=== PATIENT | female | born 1955 | race Caucasian/White ===

== ENCOUNTER 2021-03-31 10:01 | Outpatient (REF) | payer MEDICARE, MEDICAID, SELFPAY ==
--- NOTE | ~2021-03-31 | CT_ITS ---
EXAMINATION: CT ANGIOGRAM BRAIN, HEAD CLINICAL INFORMATION: 66-year-old undergoing evaluation for possible right MCA aneurysm suspected on previous outside MRI of the brain. COMPARISON: 01/31/2021 outside MRI report. Images not currently available. TECHNIQUE: Test bolus sequences followed by intravenous administration 75.0 mL of Omnipaque 350 intravenous contrast. Helical imaging was performed in the axial plane from the skull base to the vertex. Delayed postcontrast imaging of the head was also performed. The data was processed at the medical technologist blood bank workstation for generation of MIP sequences. Three-dimensional volume rendered reformatted images were also generated at an offline 3-D workstation. The degree of stenosis determined by NASCET criteria. This CT examination was performed using dose optimization techniques as appropriate, variously including the following: *Automated exposure control *Adjustment of mA and/or kV according to patient size (this includes techniques or standardized protocols for targeted exams where dose is matched to indication/reason for exam; i.e. extremities or head) *Use of iterative reconstruction technique DLP: 2261.00 mGy-cm FINDINGS: The visualized extracranial ICAs are normal in caliber and patent. The visualized extradural vertebral arteries are patent, with the left being dominant. The intracranial ICAs are patent and normal in caliber. The A1 and A2 segments are patent and normal in caliber. The anterior communicating artery is only faintly visualized. The M1 segments are patent and normal in caliber and are bilaterally symmetric. The MCA bifurcations demonstrate a normal appearance with patent, normal caliber M2 branches bilaterally. No aneurysms are identified. There is a 5 mm focus of nodular enhancement along the anterior aspect of the right middle cranial fossa, which appears to correspond to a previously noted finding along the anterior aspect of the right temporal lobe on the previous outside MRI. This is most likely a venous structure and could reflect a venous varix related to a draining cortical vein. The intradural vertebral arteries are patent with the left being dominant. The basilar artery is normal in caliber and configuration. The superior cerebellar and posterior cerebral arteries are patent and normal in caliber. The posterior communicating arteries are faintly visualized bilaterally. ANATOMIC IMAGES: The brain is normal in morphology and attenuation. No mass lesions, abnormal enhancement, space-occupying process or mass effect are identified. The ventricular system and subarachnoid spaces are within normal limits without hydrocephalus. The bony structures are intact and the visualized airspaces are unopacified. CT/CT angio head IMPRESSION: 1. No intracranial aneurysm identified. No evidence for high flow vascular malformation. 2. 5 mm focus of venous enhancement along the anterior aspect of the right temporal lobe likely representing a venous varix related to a draining cortical vein. 3. Unremarkable CT of the brain without and with contrast.
[2021-03-31] MEDS: iohexoL 350 MG/ML 100 ML INFUS..BTL IV (11:06)
== END 2021-03-31 10:02 | disposition home or self-care (01) ==
LOC: HO.CT 10:01
PROVIDERS: PCP Family Medicine; Visit Provider Internal Medicine
DX: R90.89 Other abnormal findings on diagnostic imaging of central nervous system (principal); R51.9 Headache, unspecified
CPT/HCPCS: 70496; Q9967